=== PATIENT | female | born 1935 | race Caucasian/White ===

== ENCOUNTER 2017-06-22 15:38 | Emergency (ER) | payer OTHER ==
[~2017-06-22] VITALS: Ht 167.6 cm; Wt 62.1 kg
[~2017-06-22 15:38] MED LIST: ACETAMINOPHEN-1 EAC1 PO; ALBUTEROL INHAL17 GM IH; ASPIR 8181 MG PO; BACTRIM DS TAB1 EACH; CALCIUM 600 +1 EAC1 PO; CARDIZEM CD 18180 M3 PO; CARVEDILOL3.125 MG PO; CARVEDILOL6.25 MG PO; CEFDINIR300 MG; CELEXA20 MG PO; CEPHALEXIN 500500 M3 PO; CIPROFLOXACIN500 M1 PO; COUMADIN 4 MG TA4 M1 PO; COUMADIN 5 MG TA5 M1 PO; COZAAR 50 MG TA50 M1 PO; CRANBERRY500 MG PO; ELIQUIS2.5 MG PO; ELIQUIS5 MG PO; FUROSEMIDE 20 M20 M1 PO; HYDROCHLOROTH12.5 MG; HYDROCODON-ACE1 EAC7 PO; HYDROCODONE-AP1 EAC6 PO; KLOR-CON 1010 MEQ PO; LANOXIN 0.120.125 M1 PO; LISINOPRIL10 MG PO; LISINOPRIL40 MG; LOSARTAN-HCTZ1 EAC2 PO; MAGNESIUM OXID400 MG PO; MOBIC15 MG; MOBIC15 MG PO; NORCO 5-325 TA1 EACH PO; ONDANSETRON HCL4 M2 PO; OXYBUTYNIN; OXYBUTYNIN 5 MG5 M1; OXYBUTYNIN 5 MG5 M1 PO; QUESTRAN PACKET4 GM PO; REMERON15 MG PO; SERTRALINE HCL100 MG; SERTRALINE HCL100 MG PO; ULTRAM 50MG TAB50 MG PO; ZANTAC 150MG T150 M1 PO; ZIAC 10-6.25 M1 EACH; ZIAC 10-6.25 M1 EACH PO; ZIAC 2.5-6.251 EACH PO; ZOFRAN ODT4 MG PO; ZOLOFT25 MG PO; ZPAK PO
[2017-06-22] MEDS ORDERED: PROTONIX40 M1 PO (15:51)
[2017-06-22 16:56] LABS: URINE BILIRUBIN NEGATIVE (Negative); URINE BLOOD NEGATIVE (Negative); URINE CLARITY CLEAR; URINE COLOR YELLOW; URINE GLUCOSE-RANDOM NEGATIVE (Negative); URINE KETONES NEGATIVE (Negative); URINE LEUKOCYTES-REFLEX TRACE (Negative); URINE NITRITE-REFLEX POSITIVE (Negative); URINE PROTEIN NEGATIVE (Negative); URINE SPECIFIC GRAVITY 1.015 (1.005-1.030); URINE UROBILINOGEN 0.2 E.U./dl (0.2-1.0)
[2017-06-22 17:02] LABS: SQUAMOUS 4-10 Moderate /LPF (0-3)
[2017-06-22 17:03] LABS: BACTERIA-REFLEX >30 Many /HPF (None Seen); CRYSTALS None Seen /LPF (None Seen); HYALINE CASTS 0-3 Few /LPF (None Seen); MUCUS None Seen strn/LPF (None Seen); URINE WBC-REFLEX 0-5 Rare /HPF (0-5)
[2017-06-22 17:04] LABS: URINE RBC None Seen /HPF (0-2)
[2017-06-22 18:04] VITALS: BP 154/67
== END 2017-06-22 18:04 | disposition home or self-care (01) ==
LOC: M.ERS 15:38
PROVIDERS: Nurse Practitioner Family
DX: S70.01XA Contusion of right hip, initial encounter (principal); I10 Essential (primary) hypertension; I48.91 Unspecified atrial fibrillation; M81.0 Age-related osteoporosis without current pathological fracture; Z90.710 Acquired absence of both cervix and uterus; Z88.8 Allergy status to other drugs, medicaments and biological substances; W01.198A Fall on same level from slipping, tripping and stumbling with subsequent striking against other object, initial encounter; Y93.89 Activity, other specified; Y92.098 Other place in other non-institutional residence as the place of occurrence of the external cause; Y99.8 Other external cause status

== ENCOUNTER 2019-02-21 16:19 | Emergency (ER) | payer OTHER ==
[~2019-02-21] VITALS: Ht 165.1 cm; Wt 63.5 kg
[~2019-02-21 16:19] MED LIST changes: +PROTONIX40 M1 PO
[2019-02-21 18:06] LABS: URINE BILIRUBIN NEGATIVE (Negative); URINE BLOOD NEGATIVE (Negative); URINE CLARITY CLEAR; URINE COLOR YELLOW; URINE GLUCOSE-RANDOM NEGATIVE (Negative); URINE KETONES NEGATIVE (Negative); URINE LEUKOCYTES-REFLEX NEGATIVE (Negative); URINE NITRITE-REFLEX NEGATIVE (Negative); URINE PROTEIN NEGATIVE (Negative); URINE SPECIFIC GRAVITY <= 1.005 (1.005-1.030); URINE UROBILINOGEN 0.2 E.U./dl (0.2-1.0)
[2019-02-21 18:49] LABS: ABSOLUTE EOSINOPHILS 0.1 thou/uL (0.0-0.7); ABSOLUTE LYMPHOCYTES 0.9 thou/uL (0.8-5.3); ABSOLUTE MONOCYTES 0.3 thou/uL (0.0-1.2); ABSOLUTE NEUTROPHILS 3.8 thou/uL (1.6-8.1); BASOPHILS 0.6 %; EOSINOPHILS 2.7 %; HEMATOCRIT 39.3 % (37.0-47.0); HEMOGLOBIN 13.2 gm/dL (12.0-15.0); LYMPHOCYTES 18.2 %; MCHC 33.6 g/dL (28.0-37.0); MCV 86.2 fL (80.0-100.0); MONOCYTES 6.4 %; MPV 8.7 fl. (7.2-11.1); NUCLEATED RBCS 0 /100WBC; PLATELET COUNT* 135 thou/uL (150-400); POLYS 72.1 %; RBC 4.56 mil/uL (4.20-5.00); RDW-CV 14.6 % (10.5-14.5); WBC 5.2 thou/uL (4.0-11.0)
[2019-02-21 18:59] LABS: ANION GAP 8 mmol/L (7-16); BUN 11 mg/dL (7-18); CALCIUM 8.9 mg/dL (8.5-10.1); CHLORIDE 103 mmol/L (98-107); CO2 30 mmol/L (21-32); CREATININE 0.8 mg/dL (0.6-1.3); GLUCOSE 100 mg/dL (70-99); POTASSIUM 3.8 mmol/L (3.5-5.1); SODIUM 141 mmol/L (136-145)
[2019-02-21 19:08] LABS: ALBUMIN 3.9 g/dL (3.4-5.0); ALKALINE PHOSPHATASE 100 U/L (46-116); LIPASE 43 U/L (73-393); SGOT 17 U/L (15-37); SGPT 22 U/L (30-65); TOTAL BILIRUBIN 1.1 mg/dL (<0.1-1.0); TROPONIN-I LEVEL <0.06 ng/mL (<0.06)
[2019-02-21] MEDS ORDERED: ONDANSETRON HCL4 M2 PO (19:44)
[2019-02-21 20:03] VITALS: BP 172/91
--- NOTE | 2019-02-22 09:32 | EKG ---
[place] [address] ELECTROCARDIOGRAM REPORT Name: MARYBOLA L Room: [facility]#: [id number] Admission: 02/21/19 Attend Phys: Discharge: 02/21/19 Date of : 33 Report #: [id number] THIS REPORT FOR: //name// [facility] ED Test Date: 2019-02-21 Test Time: 18:30:52 Pat Name: BOLA HERNANDEZ Department: Room: Gender: F Manager Asset: : 1935 Requested By: Sindy Mosqueda Order Number: [id number] MD: Meet Lozano Measurements Intervals [place] Rate: 77 P: [place]: QRS: -29 QRSD: 110 T: 29 QT: 409 QTc: 463 Interpretive Statements Atrial fibrillation Multiple ventricular premature complexes Anterior infarct, age indeterminate Inferior infarct, old, possible Baseline wander in lead(s) V4 Compared to ECG 02/06/2017 13:03:47 Ventricular premature complex(es) now present Poor R-wave progression no longer present Myocardial infarct finding still present Electronically Signed On 02-22-2019 9:32:32 CDT by Meet Lozano [email or web address] <ELECTRONICALLY SIGNED> By: Meet Lozano MD, FACC 02/22/19 [phone] Meet Lozano MD, FACC /EPI
== END 2019-02-21 20:05 | disposition home or self-care (01) ==
LOC: M.ERS 16:19
PROVIDERS: Nurse Practitioner Family
DX: K52.9 Noninfective gastroenteritis and colitis, unspecified (principal); K56.7 Ileus, unspecified; I10 Essential (primary) hypertension; M81.0 Age-related osteoporosis without current pathological fracture; I48.91 Unspecified atrial fibrillation; Z90.710 Acquired absence of both cervix and uterus; Z90.49 Acquired absence of other specified parts of digestive tract; Z88.3 Allergy status to other anti-infective agents

== ENCOUNTER 2019-04-09 17:45 | Emergency (ER) | payer OTHER ==
[~2019-04-09] VITALS: Ht 162.6 cm; Wt 63.8 kg
[2019-04-09 18:23] LABS: ABSOLUTE EOSINOPHILS 0.1 thou/uL (0.0-0.7); ABSOLUTE LYMPHOCYTES 0.9 thou/uL (0.8-5.3); ABSOLUTE MONOCYTES 0.3 thou/uL (0.0-1.2); ABSOLUTE NEUTROPHILS 3.6 thou/uL (1.6-8.1); BASOPHILS 0.6 %; EOSINOPHILS 1.8 %; HEMATOCRIT 36.6 % (37.0-47.0); HEMOGLOBIN 12.4 gm/dL (12.0-15.0); LYMPHOCYTES 17.7 %; MCH 29.9 pg (26.0-34.0); MONOCYTES 6.6 %; MPV 9.4 fl. (7.2-11.1); NUCLEATED RBCS 0 /100WBC; PLATELET COUNT* 113 thou/uL (150-400); POLYS 73.3 %; RBC 4.16 mil/uL (4.20-5.00); RDW-CV 14.7 % (10.5-14.5); WBC 4.9 thou/uL (4.0-11.0)
[2019-04-09 18:30] LABS: APTT 26.5 Seconds (25.0-31.3); INR 1.1; PROTIME 11.2 Seconds (9.20-11.50)
[2019-04-09 19:15] VITALS: BP 143/69
== END 2019-04-09 19:15 | disposition home or self-care (01) ==
LOC: M.ERS 17:45
PROVIDERS: Nurse Practitioner Psychiatric/Mental Health
DX: R04.0 Epistaxis (principal); D69.6 Thrombocytopenia, unspecified; R51 Headache; I10 Essential (primary) hypertension; I48.91 Unspecified atrial fibrillation; M81.0 Age-related osteoporosis without current pathological fracture; Z90.710 Acquired absence of both cervix and uterus; Z88.8 Allergy status to other drugs, medicaments and biological substances; Z88.5 Allergy status to narcotic agent

== ENCOUNTER 2019-04-10 10:54 | Emergency (ER) | payer OTHER ==
[~2019-04-10] VITALS: Ht 162.6 cm; Wt 60.3 kg
[2019-04-10 11:00] VITALS: BP 155/85
== END 2019-04-10 11:19 | disposition home or self-care (01) ==
LOC: M.ERS 10:54
DX: R04.0 Epistaxis (principal); I10 Essential (primary) hypertension; I48.91 Unspecified atrial fibrillation; M81.0 Age-related osteoporosis without current pathological fracture; Z88.5 Allergy status to narcotic agent; Z90.710 Acquired absence of both cervix and uterus; Z88.8 Allergy status to other drugs, medicaments and biological substances

== ENCOUNTER 2019-09-23 00:24 | Emergency (ER) | payer MEDICARE ==
[~2019-09-23] VITALS: Ht 167.6 cm; Wt 60.3 kg
[2019-09-23] MEDS ORDERED: PERCOCET 5-3251 EACH PO (01:26)
[2019-09-23 01:45] VITALS: BP 112/90
== END 2019-09-23 01:45 | disposition home or self-care (01) ==
LOC: M.ERS 00:24
DX: S16.1XXA Strain of muscle, fascia and tendon at neck level, initial encounter (principal); S20.211A Contusion of right front wall of thorax, initial encounter; I10 Essential (primary) hypertension; I48.91 Unspecified atrial fibrillation; Z90.710 Acquired absence of both cervix and uterus; Z88.8 Allergy status to other drugs, medicaments and biological substances; W01.0XXA Fall on same level from slipping, tripping and stumbling without subsequent striking against object, initial encounter; Y93.89 Activity, other specified; Y92.89 Other specified places as the place of occurrence of the external cause; Y99.8 Other external cause status

== ENCOUNTER 2020-09-22 22:41 | Emergency (ER) | payer OTHER ==
[~2020-09-22] VITALS: Ht 165.1 cm; Wt 59.0 kg
[~2020-09-22 22:41] MED LIST changes: +PERCOCET 5-3251 EACH PO
[2020-09-22] MEDS ORDERED: TIZANIDINE HCL4 M1 PO (23:15)
[2020-09-23 01:18] VITALS: BP 154/93
== END 2020-09-23 01:18 | disposition home or self-care (01) ==
LOC: M.ERS 22:41
DX: S81.012A Laceration without foreign body, left knee, initial encounter (principal); S00.03XA Contusion of scalp, initial encounter; M25.462 Effusion, left knee; I10 Essential (primary) hypertension; I48.91 Unspecified atrial fibrillation; Z90.710 Acquired absence of both cervix and uterus; Z88.5 Allergy status to narcotic agent; Z88.8 Allergy status to other drugs, medicaments and biological substances

== ENCOUNTER → 2020-11-20 | Outpatient (CLI) | payer OTHER ==
[~2020-11-20] MED LIST changes: +TIZANIDINE HCL4 M1 PO
== END ==
LOC: M.CT 13:09
PROVIDERS: ATTEND Internal Medicine Critical Care Medicine
DX: I51.7 Cardiomegaly (principal); R91.1 Solitary pulmonary nodule; I42.8 Other cardiomyopathies; I25.10 Atherosclerotic heart disease of native coronary artery without angina pectoris

== ENCOUNTER 2020-12-19 10:12 | Emergency (ER) | payer OTHER ==
[~2020-12-19] VITALS: Ht 167.6 cm; Wt 59.0 kg
[2020-12-19 13:35] VITALS: BP 154/88
== END 2020-12-19 13:35 | disposition home or self-care (01) ==
LOC: M.ERS 10:12
DX: S01.81XA Laceration without foreign body of other part of head, initial encounter (principal); S16.1XXA Strain of muscle, fascia and tendon at neck level, initial encounter; I10 Essential (primary) hypertension; I48.91 Unspecified atrial fibrillation; M81.0 Age-related osteoporosis without current pathological fracture; Z88.8 Allergy status to other drugs, medicaments and biological substances; Z79.899 Other long term (current) drug therapy; Z90.710 Acquired absence of both cervix and uterus; W18.30XA Fall on same level, unspecified, initial encounter; Y93.89 Activity, other specified; Y92.89 Other specified places as the place of occurrence of the external cause; Y99.9 Unspecified external cause status

== ENCOUNTER 2021-03-22 04:19 | Inpatient (IN) | payer OTHER ==
[~2021-03-22] VITALS: Ht 165.1 cm; Wt 64.9 kg
--- NOTE | ~2021-03-22 | EMS ---
[address] [address] EMS Patient Care Report Name: BOLA HERNANDEZ Room: [place] [address] ADM IN [facility]#: [id number] Admission: 03/22/21 Attend Phys: Maximiliano Levi Discharge: Date of : 33 Report #: [id number] THIS REPORT FOR: //name// Report Transmitted: 03/22/2021 06:20 EMS Care Summary [place] [id number] @ 03/22/2021 03:31 Incident [facility] [address] [facility] [place] [address] Patient Radha hernandez Female, 85 Years 1935 Patient Address [address] [place] [address] Patient History Atrial Fibrillation,Chronic Obstructive Pulmonary Disease (COPD),Hypertension (HTN),Edema,Gastro-Esophageal Reflux Disease (GERD),Dysthymic disorder, Patient Allergies , Patient Medications Eliquis, Cholestyramine Resin, Citalopram, Potassium Chloride / Sodium Chloride, Oxybutynin, Carvedilol, Furosemide, Losartan, Pantoprazole, Tizanidine, Magnesium Oxide, Chief Complaint Nausea Disposition Transported No Lights/[place] Dispatch Reason Sick Person Transported To [facility] Narrative [facility] dispatched for a hemorrhage. [facility] arrived [place] [address] EMS Patient Care Report Name: BOLA HERNANDEZ Room: [address] IN [facility]#: [id number] Admission: 03/22/21 Attend Phys: Maximiliano Levi Discharge: Date of : 33 Report #: [id number] with the patients standing at the front door. As EMS enter the residence and directed to the back bedroom. The patient (85 year old female) is seen laying on her right lateral side, no immediate life threats, no obvious injury, deformity or bleeding noted. The female patient states that she woke up very nauseated and vomited several times that had a small amount of bright red blood and dry heaved until ams arrived. The female patient states that she has been weaker than normal and dizzy, states that her chest began to hurt from vomiting. She denies any further complaints, no injuries, states she ate dinner without issue and has not had any issues with going to the bathroom. The female patient is given oral zofran prior to moving her to the ambulance. The female patient is conscious and alert to person, place, time and event. Airway is open and patent with adequate rate and depth of respirations, no cyanosis noted. Radial pulses present with capillary refill 1-2 seconds. The female patient states she wants to be transported to [facility] ([facility]). Stairchair is brought to the side of the female patients bed, she is assisted to a standing position and able to sit on the stairchair without incident, secured with safety straps. Stairchair wheeled outside of the residence and down her front steps to the ambulance. The female patient is unsecured and assisted to the cot and secured in semi fowlers position. Cot elevated and loaded into the ambulance without incident. In ambulance, 4 lead, vitals, IV access, blood glucose, IV fluids administered as documented. The female patient states that she feels better, denies any further medical complaints. The female patient is continuously monitored throughout transport as documented. The female patient is transported to [facility] without incident, transport signature obtained. Cot unloaded and wheeled inside ER, directed to ER 3. Cot brought to side of bed and lowered, all safety straps removed, transferred by slide method without incident. Transfer of care report given to LEEANN Das, transfer of care signature obtained. All belongings remained with the female patient. Care transferred. [facility] clear and available Initial Vitals @03:50SpO2: 98, @04:05SpO2: 94, @04:16SpO2: 94, @03:50 @03:50P: 81,R: 16,BP: 155/75, @04:05P: 76,R: 16,BP: 155/70, @04:16P: 72,R: 16,BP: 151/74, @03:50GCS: 15, @04:05GCS: 15, @04:16GCS: 15, @03:39 @03:56Glucose: 131, Assessments @03:37MENTAL:SKIN:HEENT:[place] [address] EMS Patient Care Report Name: LARISSA HERNANDEZBOLA L Room: [place] [address] ADM IN [facility]#: [id number] Admission: 03/22/21 Attend Phys: Maximiliano Levi Discharge: Date of : 33 Report #: [id number] SOUNDS:ABDOMEN:PELVIS//GI:EXTREMITIES:PULSE:NEURO: Impression Nausea Procedures @03:41 Ondansetron - 8.000 Milligrams (mg) - Oral Response: Improved @03:50 IV Therapy - cc () Site: Forearm-Left Response: UnchangedFailed @03:53 IV Therapy - cc () Site: Forearm-Right Response: UnchangedSucceeded @03:50 3-Lead ECG Response: UnchangedSucceeded Timeline 02:00,Call Received 03:31,Dispatch Notified 03:31,Psap Call 03:31,Dispatched 03:31,En Route 03:36,On Scene 03:37,At Patient 03:39,BP: / M,PULSE: ,RR: R,SPO2: Ox,ETCO2: ,BG: ,PAIN: ,GCS: , 03:41,Ondansetron - 8.000 Milligrams (mg) - Oral,Response: Improved 03:50,IV Therapy - cc Site: Forearm-Left,Response: UnchangedFailed, 03:50,3-Lead ECG,Response: UnchangedSucceeded, 03:50,BP: / M,PULSE: ,RR: R,SPO2: 98 Ox,ETCO2: ,BG: ,PAIN: ,GCS: , 03:50,BP: / M,PULSE: ,RR: R,SPO2: Ox,ETCO2: ,BG: ,PAIN: ,GCS: , 03:50,BP: 155/75 M,PULSE: 81,RR: 16 R,SPO2: Ox,ETCO2: ,BG: ,PAIN: ,GCS: , 03:50,BP: / M,PULSE: ,RR: R,SPO2: Ox,ETCO2: ,BG: ,PAIN: ,GCS: 15, 03:53,IV Therapy - cc Site: Forearm-Right,Response: UnchangedSucceeded, 03:56,BP: / M,PULSE: ,RR: R,SPO2: Ox,ETCO2: ,B,PAIN: ,GCS: , 03:58,Depart Scene 04:05,BP: / M,PULSE: ,RR: R,SPO2: 94 Ox,ETCO2: ,BG: ,PAIN: ,GCS: , 04:05,BP: 155/70 M,PULSE: 76,RR: 16 R,SPO2: Ox,ETCO2: ,BG: ,PAIN: ,GCS: , 04:05,BP: / M,PULSE: ,RR: R,SPO2: Ox,ETCO2: ,BG: ,PAIN: ,GCS: 15, 04:16,BP: / M,PULSE: ,RR: R,SPO2: 94 Ox,ETCO2: ,BG: ,PAIN: ,GCS: , 04:16,BP: 151/74 M,PULSE: 72,RR: 16 R,SPO2: Ox,ETCO2: ,BG: ,PAIN: ,GCS: , 04:16,BP: / M,PULSE: ,RR: R,SPO2: Ox,ETCO2: ,BG: ,PAIN: ,GCS: 15, 04:16,At Destination 04:32,Call Closed Disclaimer v1.1 Copyright 2020 [employer] This EMS Care Summary contains data elements from the applicable legal record (which may be displayed differently). It is designed to provide pertinent information for the following purposes: continuity of care, clinical quality, and state data reporting. The complete [place] [address] EMS Patient Care Report Name: BOLA HERNANDEZ Peggy Room: [place] [address] ADM IN .R.#: [id number] Admission: 03/22/21 Attend Phys: Maximiliano Levi Discharge: Date of : 33 Report #: [id number] and administrators of the receiving hospital in [facility]'s Patient Tracker. All data is provided "as is."
[~2021-03-22 04:19] MED LIST changes: -PROTONIX40 M1 PO; +PROTONIX40 M2 PO
[2021-03-22 04:20] VITALS: BP 137/77
[2021-03-22 04:57] LABS: URINE BILIRUBIN NEGATIVE (Negative); URINE BLOOD NEGATIVE (Negative); URINE CLARITY CLEAR; URINE COLOR YELLOW; URINE GLUCOSE-RANDOM NEGATIVE (Negative); URINE KETONES NEGATIVE (Negative); URINE LEUKOCYTES-REFLEX TRACE (Negative); URINE PROTEIN NEGATIVE (Negative); URINE UROBILINOGEN 0.2 E.U./dl (0.2-1.0)
[2021-03-22 05:05] LABS: URINE NITRITE-REFLEX POSITIVE (Negative)
[2021-03-22 05:12] LABS: BACTERIA-REFLEX >30 Many /HPF (None Seen); CASTS None Seen /LPF (None Seen); CRYSTALS None Seen /LPF (None Seen); MUCUS 4-6 Moderate strn/LPF (None Seen); SQUAMOUS 4-10 Moderate /LPF (0-3); TRANSITIONAL EPITHEL CELL 0-3 Few /LPF (None Seen); URINE RBC 0-2 Rare /HPF (0-2); WBC CLUMPS Few (None Seen)
[2021-03-22 05:18] LABS: ABSOLUTE LYMPHOCYTES 0.3 thou/uL (0.8-5.3); ABSOLUTE MONOCYTES 0.2 thou/uL (0.0-1.2); ABSOLUTE NEUTROPHILS 2.9 thou/uL (1.6-8.1); BASOPHILS 0.1 %; EOSINOPHILS 0.7 %; HEMATOCRIT 22.1 % (37.0-47.0); HEMOGLOBIN 7.3 gm/dL (12.0-15.0); MCH 29.6 pg (26.0-34.0); MCHC 33.1 g/dL (28.0-37.0); MCV 89.5 fL (80.0-100.0); MONOCYTES 6.8 %; MPV 8.1 fl. (7.2-11.1); NUCLEATED RBCS 0 /100WBC; PLATELET COUNT* 74 thou/uL (150-400); POLYS 84.4 %; RBC 2.47 mil/uL (4.20-5.00); RDW-CV 14.7 % (10.5-14.5); WBC 3.4 thou/uL (4.0-11.0)
[2021-03-22 05:38] LABS: ALBUMIN 1.8 g/dL (3.4-5.0); CREATININE 0.4 mg/dL (0.6-1.3); TOTAL BILIRUBIN 0.4 mg/dL (<0.1-1.0); TOTAL PROTEIN 3.4 g/dL (6.4-8.2)
[2021-03-22 05:52] LABS: POTASSIUM 2.5 mmol/L (3.5-5.1)
[2021-03-22 05:53] LABS: CALCIUM 4.9 mg/dL (8.5-10.1); MAGNESIUM 0.9 mg/dL (1.8-2.4)
--- NOTE | 2021-03-22 07:04 | NUR ---
ASSUMED PATIENT CARE AT THIS TIME
--- NOTE | 2021-03-22 07:14 | NUR ---
called pharmacy for calcium med
[2021-03-22 09:48] VITALS: BP 134/70
--- NOTE | 2021-03-22 09:57 | NUR ---
ADMISSION ASSESSMENT 2020 BOLA HERNANDEZ ADMITTED FROM HOME MENTAL STATUS A & O X3 LIVING ARRANGEMENT: HOUSE, NO STAIRS WITH AND DAUGHTER SUPPORT SYSTEM: SPOUSE: VERO HERNANDEZ DAUGHTER: TYE HERNANDEZ OF THE HOME. PHONE # [phone] SON: DORITA HERNANDEZ #[phone] HER SON TAKES HER TO APPOINTMENT, BUYS GROCERIES AND MEDICATIONS. CAN RETURN TO PRIOR YES ADL'S: INDEPENDENT SELF CARE, BUT DAUGHTER WILL COOK AND DO LAUNDRY ASSISTIVE DEVICES: CANE AND WALKER, ONLY USED THOSE WHEN SHE FRACTURED HER RIGHT TIBIA, FIBULA PRIOR RESOURCES: PHYSICAL THERAPY AT [facility] PCP: DR. CAROLINE MANTILLA NP
--- NOTE | 2021-03-22 11:24 | EKG ---
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: MR : 1935 Requested By: Ping Remy Order Number: [id number] MD: Kuldeep Lewis Measurements Intervals [place] Rate: 82 P: [place]: QRS: -35 QRSD: 107 T: 19 QT: 375 QTc: 438 Interpretive Statements Atrial fibrillation Inferior infarct, old Consider anterior infarct Baseline wander in lead(s) V1 Compared to ECG 02/21/2019 18:30:52 Ventricular premature complex(es) no longer present Myocardial infarct finding still present Electronically Signed On 03-22-2021 11:24:36 CDT by Kuldeep Lewis [email or web address] <ELECTRONICALLY SIGNED> By: Kuldeep Lewis MD, FACC 03/22/21 1124 1 1 Kuldeep Lewis MD, FACC /EPI
[2021-03-22 12:00] VITALS: BP 135/61
[2021-03-22 13:00] LABS: MAGNESIUM 2.5 mg/dL (1.8-2.4)
[2021-03-22 13:04] LABS: POTASSIUM 4.9 mmol/L (3.5-5.1)
[2021-03-22 16:00] VITALS: BP 139/70
[2021-03-22 20:44] VITALS: BP 126/71
[2021-03-22 23:50] VITALS: BP 123/55
[2021-03-23 04:40] VITALS: BP 138/67
[2021-03-23 04:56] LABS: HEMATOCRIT 31.6 % (37.0-47.0); MCH 29.7 pg (26.0-34.0); MCHC 33.5 g/dL (28.0-37.0); MCV 88.7 fL (80.0-100.0); MPV 8.4 fl. (7.2-11.1); RBC 3.57 mil/uL (4.20-5.00); RDW-CV 14.7 % (10.5-14.5)
[2021-03-23 05:17] LABS: CREATININE 0.8 mg/dL (0.6-1.3); POTASSIUM 4.2 mmol/L (3.5-5.1)
[2021-03-23 05:20] LABS: HEMOGLOBIN 10.6 gm/dL (12.0-15.0)
[2021-03-23 08:00] VITALS: BP 139/64
--- NOTE | 2021-03-23 08:41 | NUR ---
PT IS ABLE TO COMMUNICATE HER NEEDS TO STAFF EFFECTIVELY. SHE HAS DENIED THE NEED FOR PAIN MEDICATION UP TO 0700 THIS MORNING. HER LABS, SPECIFICALLY ELECTROLYTES, LOOK BETTER THAN HER INITIAL NUMBERS. POSSIBLE DISCHARGE TODAY.
[2021-03-23 09:00] VITALS: BP 139/69
[2021-03-23 12:43] VITALS: BP 158/74
[2021-03-23 18:00] VITALS: BP 154/86
[2021-03-23 20:24] VITALS: BP 149/81
[2021-03-24 00:43] VITALS: BP 152/90
[2021-03-24 04:55] LABS: HEMATOCRIT 33.2 % (37.0-47.0); HEMOGLOBIN 11.3 gm/dL (12.0-15.0); MCH 29.9 pg (26.0-34.0); MCV 87.9 fL (80.0-100.0); MPV 8.4 fl. (7.2-11.1); RBC 3.77 mil/uL (4.20-5.00); RDW-CV 14.9 % (10.5-14.5); WBC 4.6 thou/uL (4.0-11.0)
[2021-03-24 05:10] LABS: CREATININE 0.8 mg/dL (0.6-1.3); MAGNESIUM 1.6 mg/dL (1.8-2.4); POTASSIUM 3.6 mmol/L (3.5-5.1)
[2021-03-24 05:59] VITALS: BP 113/65
[2021-03-24 08:00] VITALS: BP 153/76
--- NOTE | 2021-03-24 09:02 | NUR ---
PT IS ABLE TO COMMUNICATE HER NEEDS TO STAFF EFFECTIVELY. SHE HAS DENIED THE NEED FOR PAIN MEDICATION UP TO 0700 TODAY. PT REMAINS IN RATE CONTROLLED ATRIAL FIB. ELECTROLYTES SUPPLEMENTED PER PROTOCOL ALREADY IN PLACE.
[2021-03-24 12:00] VITALS: BP 167/85
[2021-03-24 16:00] VITALS: BP 160/84
[2021-03-24 20:24] VITALS: BP 163/80
[2021-03-25] VITALS: BP 155/56
[2021-03-25 04:00] VITALS: BP 146/78
--- NOTE | 2021-03-25 05:13 | NUR ---
PT IS ABLE TO COMMUNICATE HER NEEDS TO STAFF EFFECTIVELY. SHE HAS DENIED THE NEED FOR PAIN MEDICATION UP TO THIS TIME. POSSIBLE DISCHARGE HOME TODAY.
[2021-03-25 05:23] LABS: HEMOGLOBIN 11.8 gm/dL (12.0-15.0); MCH 29.7 pg (26.0-34.0); MCHC 33.6 g/dL (28.0-37.0); MCV 88.4 fL (80.0-100.0); MPV 8.7 fl. (7.2-11.1); RBC 3.97 mil/uL (4.20-5.00); RDW-CV 14.6 % (10.5-14.5); WBC 4.6 thou/uL (4.0-11.0)
[2021-03-25 05:40] LABS: CALCIUM 8.2 mg/dL (8.5-10.1); CREATININE 0.7 mg/dL (0.6-1.3); MAGNESIUM 1.5 mg/dL (1.8-2.4); POTASSIUM 3.2 mmol/L (3.5-5.1)
[2021-03-25 08:30] VITALS: BP 167/84
[2021-03-25 11:43] VITALS: BP 149/69
--- NOTE | 2021-03-25 16:12 | NUR ---
PLAN OF CARE: PHYSICIAN INFORMS OF PLAN FOR THE PT TO POSSIBLY D/C HOME WITH HH TOMORROW. CM WILL REMAIN AVAILABLE TO ASSIST AND FOLLOW NEEDED.
--- NOTE | 2021-03-25 16:16 | NUR ---
PT A&Ox4. VITALS STABLE. IV PATENT, INFUSING. UP STB TO CAMMODE. MILD NAUSEA, NO MEDS NEEDED. IMMODIUM GIVEN. FALL PRECAUTIONS IN PLACE. CALL LIGHT WITHIN REACH. WILL CONTINUE TO MONITOR.
[2021-03-25 17:13] VITALS: BP 104/52
[2021-03-25 20:00] VITALS: BP 128/66
--- NOTE | 2021-03-25 20:00 | NUR ---
RECEIVED REPORT AND ASSUMED CARE OF PT, ASSESSMENT COMPLETED. PT PLEASANT AND TALKATIVE. DENIES NAUSEA OR DISCOMFORT. TELEMETRY ON SHOWING A-FIB. WILL CONT TO MONITOR AND ASSIST NEEDED.
[2021-03-26] VITALS (9 sets, daily range): BP systolic 106–143; BP diastolic 40–69
[2021-03-26 05:17] LABS: MAGNESIUM 1.8 mg/dL (1.8-2.4)
[2021-03-26 05:18] LABS: POTASSIUM 4.2 mmol/L (3.5-5.1)
--- NOTE | 2021-03-26 06:56 | NUR ---
SLEPT WELL TONIGHT UNTIL THIS AM, AT PRESENT TIME C/O NAUSEA AND HAVING DIARRHEA. STATES SHE DOESN'T WANT TO GO HOME UNTIL THEY FIND OUT WHAT IS WRONG. TELEMETRY CONT TO SHOW A-FIB. NO CHANGE IN ASSESSMENT. HS GOALS OF REST AND SAFETY ACHIEVED.
--- NOTE | 2021-03-26 15:55 | NUR ---
PHYSICIAN INFORMS OF PLAN FOR THE PT TO D/C TODAY HOME WITH HH. PT AND SPOUSE HAVE NO PREFERANCE OF HH COMPANY AND AGREE TO HH LONG IT IS IN-NETWORK WITH THE PT'S INSURANCE. CM FAXED PT'S CLINCIAL INFO TO [facility]. CM WILL REMAIN AVAILABLE TO ASSIST AND FOLLOW NEEDED.
--- NOTE | 2021-03-26 16:05 | NUR ---
PLAN OF CARE: PHYSICIAN INFORMS OF PLAN TO POSSIBLY D/C PT HOME TOMORROW WITH HH. CM FAXED PT'S CLINCIAL INFO TO [facility]. CM WILL REMAIN AVAILABLE TO ASSIST AND FOLLOW NEEDED.
[2021-03-27] VITALS (7 sets, daily range): BP systolic 115–162; BP diastolic 56–78
[2021-03-27 04:48] LABS: HEMATOCRIT 33.2 % (37.0-47.0); HEMOGLOBIN 11.1 gm/dL (12.0-15.0); MCH 29.4 pg (26.0-34.0); MCHC 33.5 g/dL (28.0-37.0); MCV 87.6 fL (80.0-100.0); MPV 8.2 fl. (7.2-11.1); RBC 3.79 mil/uL (4.20-5.00); RDW-CV 14.8 % (10.5-14.5); WBC 3.9 thou/uL (4.0-11.0)
[2021-03-27 04:55] LABS: CALCIUM 8.5 mg/dL (8.5-10.1); CREATININE 0.8 mg/dL (0.6-1.3); POTASSIUM 4.1 mmol/L (3.5-5.1)
--- NOTE | 2021-03-27 05:18 | NUR ---
PT IS ABLE TO COMMUNICATE HER NEEDS TO STAFF EFFECTIVELY. SHE HAS DENIED THE NEED FOR PAIN MEDICATION UP TO THIS TIME. POSSIBLE DISCHARGE TODAY.
[2021-03-27] MEDS ORDERED: TRANSDERM-SCOP1 EACH TRANSDERM (07:27)
[2021-03-27] MEDS ORDERED: LOPERAMIDE 2 MG2 M1 PO (07:33)
[2021-03-27] MEDS ORDERED: AUGMENTIN 875-1 EACH PO (07:33)
--- NOTE | 2021-03-27 13:31 | NUR ---
MILY ([facility]) MET WITH PATIENT AT BEDSIDE TO DISCUSS HOME HEALTH. PATIENT AGREES TO USE [facility]. [facility] WILL ACCEPT PATIENT UPON HOPSITAL DISCHARGE.
== END 2021-03-27 13:37 | disposition home health service (06) | DRG 871 ==
LOC: M.ERS 04:19 → M.TBA-ER 06:14 → M.2W 06:14
PROVIDERS: Emergency Medicine; Internal Medicine; ADMIT Internal Medicine; ATTEND Internal Medicine
DX: A41.9 Sepsis, unspecified organism (principal); E43 Unspecified severe protein-calorie malnutrition; D61.818 Other pancytopenia; N30.01 Acute cystitis with hematuria; I10 Essential (primary) hypertension; Z20.822 Contact with and (suspected) exposure to COVID-19; I48.91 Unspecified atrial fibrillation; M81.0 Age-related osteoporosis without current pathological fracture; E83.51 Hypocalcemia; E87.6 Hypokalemia; E83.42 Hypomagnesemia; Z68.23 Body mass index [BMI] 23.0-23.9, adult; Z90.710 Acquired absence of both cervix and uterus; Z87.81 Personal history of (healed) traumatic fracture; Z88.6 Allergy status to analgesic agent; Z88.8 Allergy status to other drugs, medicaments and biological substances; Z79.899 Other long term (current) drug therapy

== ENCOUNTER 2021-05-03 10:10 | Emergency (ER) | payer OTHER ==
[~2021-05-03] VITALS: Ht 167.6 cm; Wt 59.0 kg
[~2021-05-03 10:10] MED LIST changes: +AUGMENTIN 875-1 EACH PO; +LOPERAMIDE 2 MG2 M1 PO; +TRANSDERM-SCOP1 EACH TRANSDERM
[2021-05-03] MEDS ORDERED: UNKNOWN ABX (10:25)
[2021-05-03 13:56] LABS: URINE BILIRUBIN NEGATIVE (Negative); URINE BLOOD NEGATIVE (Negative); URINE CLARITY CLEAR; URINE COLOR YELLOW; URINE GLUCOSE-RANDOM NEGATIVE (Negative); URINE KETONES NEGATIVE (Negative); URINE LEUKOCYTES-REFLEX NEGATIVE (Negative); URINE NITRITE-REFLEX NEGATIVE (Negative); URINE PROTEIN NEGATIVE (Negative); URINE UROBILINOGEN 0.2 E.U./dl (0.2-1.0)
[2021-05-03 13:58] LABS: HEMATOCRIT 39.3 % (37.0-47.0); HEMOGLOBIN 13.1 gm/dL (12.0-15.0); MCH 29.7 pg (26.0-34.0); MCHC 33.2 g/dL (28.0-37.0); MCV 89.4 fL (80.0-100.0); MPV 8.8 fl. (7.2-11.1); RBC 4.4 mil/uL (4.20-5.00); RDW-CV 13.7 % (10.5-14.5); WBC 5.5 thou/uL (4.0-11.0)
[2021-05-03 14:04] LABS: CREATININE 0.7 mg/dL (0.6-1.3)
[2021-05-03 16:05] VITALS: BP 160/65
--- NOTE | 2021-05-05 10:35 | EKG ---
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 : 1935 Requested By: Khari Delaney Order Number: [id number] MD: Kuldeep Lewis Measurements Intervals [place] Rate: 82 P: [place]: QRS: -29 QRSD: 103 T: 33 QT: 370 QTc: 432 Interpretive Statements Atrial fibrillation Ventricular premature complex Borderline left axis deviation Probable anterior infarct, age indeterminate Compared to ECG 03/22/2021 04:32:29 Ventricular premature complex(es) now present Myocardial infarct finding still present Electronically Signed On 05-05-2021 10:35:38 DIRECTIONAL DRILLER by Kuldeep Lewis [email or web address] <ELECTRONICALLY SIGNED> By: Kuldeep Lewis MD, [facility] 05/05/21 1035 1015 1015 Kuldeep Lewis MD, [facility] /EPI
== END 2021-05-03 16:06 | disposition home or self-care (01) ==
LOC: M.ERS 10:10
PROVIDERS: Emergency Medicine Emergency Medical Services
DX: N39.0 Urinary tract infection, site not specified (principal); Z20.822 Contact with and (suspected) exposure to COVID-19; R00.2 Palpitations; I10 Essential (primary) hypertension; J44.9 Chronic obstructive pulmonary disease, unspecified; Z90.49 Acquired absence of other specified parts of digestive tract; Z90.710 Acquired absence of both cervix and uterus; Z79.899 Other long term (current) drug therapy; Z88.8 Allergy status to other drugs, medicaments and biological substances; Z88.6 Allergy status to analgesic agent